=== PATIENT | female | born 1995 | race Caucasian/White ===

== ENCOUNTER 2018-03-07 11:07 | Inpatient (IN) | payer OTHER ==
--- NOTE | 2018-03-07 09:27 | PDHPUP ---
History & Physical Update H&P update statement: This history and physical update is based on an assessment of the patient which was completed after admission or registration (within 24 hours), but prior to the surgery/procedure. H&P update: H&P reviewed & patient examined
[2018-03-07] MEDS ORDERED: BACITRACIN ZINC 0.5 OZ OINTTUBE TP ONE (11:48)
[2018-03-07] MEDS ORDERED: LIDO/EPI 1% **Not for Epidural 20 ML MDV ONE (11:49)
--- NOTE | 2018-03-07 11:56 | PDANEPAE ---
ANE History of Present Illness THYROIDECTOMY ANE Past Medical History - Cardiovascular History Hx Hypertension: No Hx Arrhythmias: No Hx Chest Pain: No Hx Coronary Artery / Peripheral Vascular Disease: No Hx CHF / Valvular Disease: No Hx Palpitations: No - Pulmonary History Hx COPD: No Hx Asthma/Reactive Airway Disease: No Hx Recent Upper Respiratory Infection: No Hx Oxygen in Use at Home: No Hx Sleep Apnea: No Sleep Apnea Screening Result - Last Documented: Negative - Neurologic History Hx Cerebrovascular Accident: No Hx Seizures: No Hx Dementia: No - Endocrine History Hx Diabetes: No Hypothyroid: No Hyperthyroid: No Obesity: no - Renal History Hx Renal Disorders: No - Liver History Hx Hepatic Disorders: No - Neurological & Psychiatric Hx Hx Neurological and Psychiatric Disorders: No - Cancer History Hx Cancer: Yes Cancer History Comment: thyroid new diagnosis - Congenital Disorder History Hx Congenital Disorders: No - GI History GERD: no Hx Gastrointestinal Disorders: No - Other Health History Other Health History: none - Chronic Pain History Chronic Pain: No - Surgical History Prior Surgeries: removal of mass in neck 02/08 ANE Review of Systems Review of Systems: - Exercise capacity METS (RN): 5 METS ANE Patient History - Allergies Allergies/Adverse Reactions: No Known Allergies Allergy (Verified 02/18/18 14:51) - Home Medications Home Medications: Microgestin 21 1.5-30 Tab 02/18/18 [Last Taken 02/28/18] - Anes Hx Anes Hx: no prior problems - Smoking Hx Smoking Status: Former smoker - Alcohol Use Alcohol Use: Other (7 drinks/weekend) - Family Anes Hx Family Anes Hx: none Family Hx Anesthesia Complications: none ANE Labs/Vital Signs - Vital Signs Height: 157.48 cm Weight: 48.534 kg ANE Physical Exam - Airway Neck exam: FROM Mallampati Score: Class 1 Mouth exam: normal dental/mouth exam - Pulmonary Pulmonary: clear to auscultation - Cardiovascular Cardiovascular: regular rate and rhythym - ASA Status ASA Status: I ANE Anesthesia Plan Anesthesia Plan: general endotracheal anesthesia
[2018-03-07] MEDS ORDERED: MIDAZOLAM 2 MG/2 ML VIAL IVP ONE (11:57)
[2018-03-07] MEDS ORDERED: ROCURONIUM 50 MG/5 ML VIAL ONE (12:04)
[2018-03-07] MEDS ORDERED: PROPOFOL/EMULSION 500 MG/50 ML BOTTLE IV ONE (12:04)
[2018-03-07] MEDS ORDERED: ceFAZolin 2 GM/DEXTROSE 100 ML IV ONE (12:05)
[2018-03-07] MEDS ORDERED: DEXAMETHASONE 10 MG/ML VIAL IVP ONE ×2 (12:05→12:15)
[2018-03-07] MEDS ORDERED: LR 1,000 ML IV ONE (12:06)
[2018-03-07] MEDS ORDERED: LIDOCAINE 1% 2 ML INJ ID PRN (12:06)
[2018-03-07] MEDS ORDERED: DEXAMETHASONE 4 MG/ML VIAL ONE ×3 (12:55)
[2018-03-07] MEDS ORDERED: PHENYLEPHRINE HCL 100 MCG/ML SYR ONE (13:20)
[2018-03-07] MEDS ORDERED: ESMOLOL HCL 100 MG/10 ML VIAL IV ONE (14:38)
[2018-03-07] MEDS ORDERED: PROPOFOL 200 MG/20 ML VIAL ONE (14:54)
[2018-03-07] MEDS ORDERED: ONDANSETRON 4 MG/2 ML VIAL ONE (15:28)
[2018-03-07] MEDS ORDERED: ONDANSETRON 4 MG/2 ML VIAL IVP PRN (16:22)
[2018-03-07] MEDS ORDERED: NALOXONE HCL 0.4 MG/ML INJ IVP PRN (16:22)
[2018-03-07] MEDS ORDERED: HYDROmorphONE/DILAUDID 2 MG/ML INJ IVP PRN (16:22)
[2018-03-07] MEDS ORDERED: ACETAMINOPHEN 160 MG/5 ML UDCUP PO PRN (16:45)
--- NOTE | 2018-03-07 17:00 | POSTANESTH ---
Post Anesthetic Evaluation Cardiovascular Status: Normal, Stable Respiratory Status: Normal, Stable Level of Consciousness/Mental Status: Can Participate in Eval Pain Control: Adequate, Prn Tx Ordered Nausea/Vomiting Control: Adequate, Prn Tx Ordered Complications Possibly Related to Anesthesia: None Noted
[2018-03-07] MEDS ORDERED: fentaNYL 100 MCG/2 ML INJ ONE (17:17)
[2018-03-07] MEDS: fentaNYL 100 MCG/2 ML INJ IVP PRN ×2 (17:20→17:54)
--- NOTE | 2018-03-07 18:05 | GOP ---
DATE OF OPERATION: 03/07/2018 SURGEON: Yunior Nunez MD MATRIX INSPECTOR: Delroy Gallagher. ANESTHESIA: General. PREOPERATIVE DIAGNOSIS: Metastatic papillary thyroid carcinoma. POSTOPERATIVE DIAGNOSIS: Metastatic papillary thyroid carcinoma. PROCEDURE PERFORMED: Right lateral neck dissection. FINDINGS: SPECIMENS: Right neck lymph node, level 2B, 3, and 4. ESTIMATED BLOOD LOSS: Less than 50 mL. INDICATIONS: The patient is a 23-year-old woman who has biopsy-proven papillary thyroid carcinoma me tastatic to the right lateral neck. She presents for total thyroidectomy with central compartment ne ck dissection and also for right lateral neck dissection. DESCRIPTION OF PROCEDURE: The patient was taken to the operating room, positively identified, placed on monitors and general endotracheal anesthesia was induced. See Dr. Gallagher's dictation regarding the total thyroidectomy and central neck dissection. Upon completion of those procedures, attention was turned to the right lateral neck. We dissected al cristian the anterior aspect of the sternocleidomastoid muscle, extending up to the area of the previous s car tissue from the biopsy. The skin and scar had been excised, some of this was remaining along the anterior aspect of the sternocleidomastoid muscle. This was freed up and dissection was swept up to the level 2B region where lymph nodes were visible. The dissection was carried down inferiorly. The omohyoid muscle was identified. This was freed up from the underlying jugular vein and carotid cori ry. This allowed it to be swept inferiorly to expose the level 4 lymph nodes. At this point, maintaining a broad plane of dissection, we swept down to the deep cervical fascia and the cervical rootlets and swept the tissue anteriorly, avoiding the phrenic nerve. The lymph nodes were dissected off the posterior aspect of the jugular vein and swept over the jugular vein. The vag us and phrenic nerves as mentioned were preserved. Superiorly, we did not encounter the accessory ne rve. The nerve stimulator was used above this region of scar tissue. We did not identify it. The l ymphatic tissue was swept anteriorly off the neck and into different sections and sent for pathologic evaluation. The wound was then irrigated with sterile saline solution. A 10-Romanian round WENDY drain was placed and secured with a drain stitch. The closure was dictated by Dr. Delroy Gallagher. She was extubated and taken to postop care in good condition. Her voice was excellent in the PACU and her trapezius muscl es worked with equal strength in the PACU as well. /[id number]/MODL
[2018-03-07] MEDS: HYDROCOD/APAP 7.5/325 IN 15ML UDCUP PO PRN ×2 (19:16→23:13)
[2018-03-07] MEDS: D5W LR 1,000 ML IV SCH (21:01)
[2018-03-07] MEDS: ONDANSETRON 4 MG/2 ML VIAL IVP PRN (21:06)
[2018-03-07] MEDS: ceFAZolin 0.5 GM in NS 50 ML IV SCH (21:52)
[2018-03-07] MEDS ORDERED: CALCIUM GLUCONATE 2 GM in D5W 50 ML IV ONE (23:30)
[2018-03-08] MEDS: ceFAZolin 0.5 GM in NS 50 ML IV SCH (05:41)
[2018-03-08] MEDS: HYDROCOD/APAP 7.5/325 IN 15ML UDCUP PO PRN ×4 (05:50→18:38)
[2018-03-08] MEDS ORDERED: CALCIUM GLUCONATE 50 ML IV ONE ×2 (07:44→17:59)
[2018-03-08] MEDS ORDERED: CALCIUM GLUCONATE 2 GM in NS 50 ML IV ONE (07:55)
[2018-03-08] MEDS ORDERED: CALCIUM GLUCONATE 1 GM in D5W 50 ML IV ONE ×2 (08:00→18:30)
[2018-03-08] MEDS ORDERED: MAGNESIUM CITRATE 300 ML BOTTLE PO SCH (09:00)
[2018-03-08] MEDS: D5W LR 1,000 ML IV SCH (09:55)
--- NOTE | 2018-03-08 10:23 | SOAPPROG ---
SOAP Progress Note Assessment/Plan: Assessment: Pt POD #1 s/p total thyroidectomy. She is doing well. Pain controlled. Calcium levels dropped over night and she had some tingling sensations. She was given 2 gm IV calcium overnight and again this morning. Voice strong. Tavo drains removed, WENDY remains. Incision c/d/i. Dressing replaced. Will continue to monitor calcium levels and replace as needed. Continue PO magnesium/vitamin D. We will re-evaluate later today, possible d/c tomorrow or when calcium normalizes. Pt was evaluated by Dr. Gallagher today, agrees with plan. Plan: 03/08/18 10:20 Objective: Vital Signs Temp Pulse Resp BP Pulse Ox 36.9 C 81 16 102/57 L 96 03/08/18 08:28 03/08/18 08:28 03/08/18 08:28 03/08/18 08:28 03/08/18 08:28 03/07/18 03/08/18 03/09/18 05:59 05:59 05:59 Intake Total 1842 Output Total 765 Balance 1077 ICD10 Worksheet Patient Problems: Problems Problem Status Onset Thyroid mass Acute - ICD10 Problem Qualifiers (1) Thyroid mass
--- NOTE | 2018-03-08 11:27 | ASMTCMCOM ---
CM Note CM Note Notes: Pt is a 23 y/o female admitted for a right neck lateral dissection. Pt should not have any d/c needs. CM available for changes. Plan: Independent Date Signed: 03/08/2018 11:26 AM Electronically Signed By:REMY Hunter
[2018-03-08] MEDS: MAGNESIUM OXIDE 400 MG TAB PO SCH (11:39)
[2018-03-08] MEDS: CHOLECALCIFEROL VIT D3 2,000 UNITS TAB/CAP PO SCH (11:40)
[2018-03-08] MEDS: CALCIUM CARBONATE 500 MG CHEWABLE TAB PO SCH ×2 (16:13→21:53)
--- NOTE | 2018-03-08 17:02 | GOP ---
DATE OF OPERATION: 03/07/2018 SURGEON: Delroy Gallagher MD FRUIT CULLER: Yunior Nunez MD. ANESTHESIA: General. PREOPERATIVE DIAGNOSIS: Papillary thyroid carcinoma. POSTOPERATIVE DIAGNOSIS: Papillary thyroid carcinoma. PROCEDURE PERFORMED: Total thyroidectomy with central neck dissection. FINDINGS: SPECIMENS: To Pathology from the thyroid gland, right paratracheal nodes, and central paratracheal n odes. ESTIMATED BLOOD LOSS: Less than 100 mL. INDICATIONS: Papillary thyroid carcinoma. DESCRIPTION OF PROCEDURE: The patient is a 23-year-old female brought to the operating room where ge neral anesthesia was induced. Endotracheal intubation was performed. The patient was placed with th e neck in extension and a horizontal neck crease identified for purposes of a planned incision and it was marked out with 1% lidocaine with epinephrine 1:100,000 strength infiltrated subcutaneously into the planned incision. Roughly 8 mL were used. The neck was then prepped and draped in a sterile fa shion. The procedure was then begun by using a 15 blade to excise the old biopsy site scar in the ri ght lateral neck in the neck crease extending the incision across the neck in a horizontal fashion in the neck crease to the contralateral sides anterior to the sternocleidomastoid muscle. The incision was deepened into a deep subcutaneous and subplatysmal plane using blunt dissection and electrocaute ry and superior and inferior skin flaps were raised through this approach to help expose the midline and right lateral neck. The flaps were then retracted using 2-0 silk suture. The midline was identi fied and divided down to the thyroid fascia and the thyroid fascia dissected free of surrounding musc ulature in a blunt fashion using electrocautery and blunt dissection overlying the right lateral thyr oid gland to the right lateral vein. The lateral vein was then identified and divided with bipolar e lectrocautery and tenotomy scissors. Dissection then proceeded along the superior pole with removal of muscle from this region off the thyroid gland. The superior pole vessels were identified, clamped , divided, and ligated using 2-0 silk tie for the thyroid portion of the vessels and a 2-0 stick tie for the superior portion of the vessels. Further dissection of the fascia released the thyroid gland superiorly and laterally and the gland was rotated medially. Dissection underneath the gland reveal ed the recurrent laryngeal nerve and this was traced superiorly and inferiorly with dissection of the fascia of the thyroid gland off the nerve. Once this was done, the gland was dissected off Zhang li gament on the trachea and retracted medially over the anterior trachea. The isthmus and pyramidal lob e were also identified during this portion of the dissection and dissected free of the trachea as wel l. At this portion of the procedure, the right paratracheal nodes were identified just on top of and lateral and posterior to the recurrent laryngeal nerve and these nodes are suspicious for metastatic disease and they are dissected free of the nerve with tracing of the paratracheal fat down on the ri ght and central portion inferior to the isthmus of the thyroid gland with protection of the recurrent laryngeal nerve during the portion of this dissection, contents of the central and right lateral par atracheal nodes are then sent for pathology. The patient then has the left thyroid addressed with dis section of the fascia off the gland and removal of muscle off the gland with dissection and release o f the lateral thyroid vein using bipolar electrocautery and tenotomy scissors. The superior pole ves sels were identified, clamped, divided, and ligated using 2-0 silk tie and 2-0 stick ties for the inf erior and superior portions, respectively. The gland was then retracted medially and the recurrent l aryngeal nerve identified in its normal course. The gland was further dissected away from surroundin g fascia and vasculature pedicles and retracted medially until it was removed in toto from the neck. At this portion of the procedure, the thyroid gland was dissected into 3 elements, the right lobe, t he left lobe, and the isthmus and pyramidal lobes and these were sent to Pathology for routine analys is. The contents of the neck were then checked with both recurrent laryngeal nerves identified and t raced and felt to be intact and the parathyroid glands were identified with 3 glands identified, the superior right, the superior and inferior left. The inferior right parathyroid gland was likely kimber ramone with the suspicious right paratracheal nodes. The wound was then copiously irrigated and any ble eding controlled with bipolar electrocautery. At this portion of the procedure, Dr. Daniels's dicta tion for the right lateral neck dissection will proceed as the next thing that occurred surgically. After his dictation, please add the following paragraph: At the conclusion of the procedure, all wou nds were copiously irrigated and checked for bleeding and adequate and excellent hemostasis noted. T he wounds were then closed with 4-0 Monocryl suture to close the muscular layers and 4-0 Monocryl for the subcutaneous layers and 5-0 nylon for the cutaneous layer. The wounds were closed over drains w ith two 1/4-inch Crescent exiting either side of the trachea where the thyroid tissue cavity was, and these exited the midline of the incision and a #10 WENDY drain which was used to drain the right lateral neck dissection which exited the neck lateral to the incision in a separate access point. The WENDY dr barnes was sewn in place with 3-0 silk suture, and the patient's neck once it was closed was cleaned and dressed with Bacitracin, Telfa, and fluff and Nicole dressing and she was awakened and extubated unev entfully and brought to the recovery room in stable condition where she was expected to do well posto peratively. The patient tolerated the procedure well. HISTORY: This is a 23-year-old woman with open biopsy proven papillary carcinoma metastatic to the r ight neck. Risks, benefits, indications, options, possible complications, and limitations of this pr ocedure were discussed at length with the patient and her parents prior to signing informed consent, and she was given a chance to have her questions answered. /[id number]/MODL
[2018-03-08] MEDS ORDERED: BACITRACIN ZINC 0.5 OZ OINTTUBE TP ONE (18:01)
[2018-03-08] MEDS ORDERED: BACITRACIN OINTMENT 1 PACKET TP ONE (18:06)
[2018-03-09] MEDS: HYDROCOD/APAP 7.5/325 IN 15ML UDCUP PO PRN ×6 (01:06→23:00)
[2018-03-09] MEDS: D5W LR 1,000 ML IV SCH ×2 (01:17→17:12)
[2018-03-09] MEDS ORDERED: CALCIUM GLUCONATE 50 ML IV ONE (07:45)
[2018-03-09] MEDS: CALCITRIOL 0.25 MCG CAP PO SCH ×3 (08:09→21:37)
[2018-03-09] MEDS: MAGNESIUM OXIDE 400 MG TAB PO SCH (08:09)
[2018-03-09] MEDS: CALCIUM CARBONATE 500 MG CHEWABLE TAB PO SCH ×3 (08:09→21:37)
[2018-03-09] MEDS: CHOLECALCIFEROL VIT D3 2,000 UNITS TAB/CAP PO SCH (08:09)
[2018-03-09] MEDS: ONDANSETRON 4 MG/2 ML VIAL IVP PRN (10:48)
[2018-03-09] MEDS ORDERED: CALCIUM GLUCONATE 2 GM in D5W 50 ML IV ONE ×2 (12:00→20:00)
--- NOTE | 2018-03-09 14:58 | SOAPPROG ---
SOAP Progress Note Assessment/Plan: pt s/p total thyroid 03/07. She has jasper hypocalcemic. We robyn her this am and she was not ahving any numbness or cramping. Ca was .98. i gave her 1 gm calcium gluconate/rocaltrol and she then dropped to .96 and had some numbness/ tingling per nurse. We then gave her 2 amp calcium. waiting for redraw Seen this morning with Dr. Gunter. drain removed. dressing placed. Plan: continue to follow calcium closely. will need to stay in hospital until stabilized. 03/09/18 14:55 Objective: Vital Signs Temp Pulse Resp BP Pulse Ox 37.0 C 93 16 110/63 95 03/09/18 08:00 03/09/18 08:00 03/09/18 08:00 03/09/18 08:00 03/09/18 08:00 03/08/18 03/09/18 03/10/18 05:59 05:59 05:59 Intake Total 1842 Output Total 765 905 Balance 1077 -905 - Pending Discharge Pending Discharge Within 48 Hours: Yes Pending Discharge Date: 03/11/18 Pending Discharge Time: 11:00 ICD10 Worksheet Patient Problems: Problems Problem Status Onset Thyroid mass Acute
--- NOTE | 2018-03-09 15:52 | PDMN ---
Medical Necessity Medical necessity: Change to inpt as of 03/09/18 @ 15:40 per MD order and [facility] S- 1090, Thyroidectomy. 23 y/o w/papillary thyroid carcinoma metastatic to R lateral neck admitted for total thyroidectomy w/R lateral neck dissection and lymph node dissection. Upgraded to inpt for post-op hypocalcemia, persistent, despite calcium replacement, cont to follow calcium closely, est LOS>2MN for ongoing eval/management of above.
[2018-03-09] MEDS: BACITRACIN OINTMENT 1 PACKET TP SCH (19:52)
[2018-03-10] MEDS: HYDROCOD/APAP 7.5/325 IN 15ML UDCUP PO PRN ×4 (03:06→20:49)
[2018-03-10] MEDS: BACITRACIN OINTMENT 1 PACKET TP SCH ×3 (03:21→18:43)
--- NOTE | 2018-03-10 07:47 | SOAPPROG ---
KIKO Progress Note Assessment/Plan: pt s/p total thyroid 03/07. She has jasper hypocalcemic. I gaveher 2 amps at 8pm and thsi morning her ca is stable at 1.06. No numbness /tingling or cramping. Plan: continue to follow calcium closely. will need to stay in hospital until stabilized. reviewed with Elliott. The plan is to see how she does today. If stays stable without IV ca then can go home tonight or in morning. I will draw calcium a t noon. If symptomatic sooner than nurse will call us. I had increased her tums last night to 1500mg so hopefully that will help keep her stable. 03/09/18 14:55 03/10/18 07:44 Objective: Vital Signs Temp Pulse Resp BP Pulse Ox 37.0 C 82 16 116/55 L 95 03/09/18 22:59 03/09/18 22:59 03/09/18 22:59 03/09/18 22:59 03/09/18 22:59 03/09/18 03/10/18 03/11/18 05:59 05:59 05:59 Intake Total 3952 Output Total 905 Balance -905 3952 ICD10 Worksheet Patient Problems: Problems Problem Status Onset Thyroid mass Acute
[2018-03-10] MEDS: CALCITRIOL 0.25 MCG CAP PO SCH ×3 (08:19→21:17)
[2018-03-10] MEDS: CHOLECALCIFEROL VIT D3 2,000 UNITS TAB/CAP PO SCH (08:19)
[2018-03-10] MEDS: CALCIUM CARBONATE 500 MG CHEWABLE TAB PO SCH ×3 (08:19→21:17)
[2018-03-10] MEDS: MAGNESIUM OXIDE 400 MG TAB PO SCH (10:34)
--- NOTE | 2018-03-10 13:24 | SOAPPROG ---
SOAP Progress Note Assessment/Plan: Assessment: Hypocalcemia - stable at 12p today on PO tums. I took off wrap dressing and replaced with abx ointment and light cover dressing. Plan: Continue PO tums. If she continues to have stable serum Ca will d/c on in am. She can bathe but told to keep wound completely dry 03/10/18 13:21 03/10/18 13:24 Subjective: Pt reports that she is feeling good. No numbness, tingling of face or around mouth Objective: Vital Signs Temp Pulse Resp BP Pulse Ox 36.8 C 81 15 97/59 L 98 03/10/18 08:00 03/10/18 08:00 03/10/18 08:00 03/10/18 08:00 03/10/18 08:00 03/09/18 03/10/18 03/11/18 05:59 05:59 05:59 Intake Total 3952 500 Output Total 905 Balance -905 3952 500 VSS, pt resting comfortably in bed. Wound dry. No oozing or swelling in throat - Pending Discharge Pending Discharge Within 24 Hours: Yes Pending Discharge Date: 03/11/18 Pending Discharge Time: 11:00 ICD10 Worksheet Patient Problems: Problems Problem Status Onset Thyroid mass Acute
[2018-03-11] MEDS: BACITRACIN OINTMENT 1 PACKET TP SCH ×2 (03:28→11:25)
[2018-03-11] MEDS: HYDROCOD/APAP 7.5/325 IN 15ML UDCUP PO PRN ×2 (04:30→11:23)
[2018-03-11] MEDS: CALCIUM CARBONATE 500 MG CHEWABLE TAB PO SCH (08:43)
[2018-03-11] MEDS: MAGNESIUM OXIDE 400 MG TAB PO SCH (08:43)
[2018-03-11] MEDS: CALCITRIOL 0.25 MCG CAP PO SCH (08:43)
[2018-03-11] MEDS: CHOLECALCIFEROL VIT D3 2,000 UNITS TAB/CAP PO SCH (08:43)
[2018-03-11 09:01] VITALS: BP 96/55
--- NOTE | 2018-03-11 10:01 | PDDCSUM ---
Discharge Summary Discharge Summary: pt s/p total thyroidectomy with neck dissection for papilalry CA on 03/[address] morfin. Pt developed hypocalcemia post operatively and ws monitored for 4 days. Drain removed Wed. She required IV CA on 03/09 but ahs held stable since with Tums 1500mg 3-4x day and rocaltrol. pt discharged home with Percocet prn, rocaltrol tid, tums 150mmg tid. F/u Tuesday 03/14 for suture removal. has appt with endocrine scheduled.
== END 2018-03-11 12:06 | disposition home or self-care (01) | DRG 626 ==
LOC: F3N 11:07 → F3E 20:00 → OBSVTOIN 03-09 15:40
PROVIDERS: ADMIT Otolaryngology; ATTEND Otolaryngology
PROC: 07B10ZX Excision of Right Neck Lymphatic, Open Approach, Diagnostic (ICD-10-PCS; principal; 2015-03-07)
PROC: 07B20ZX Excision of Left Neck Lymphatic, Open Approach, Diagnostic (ICD-10-PCS; principal; 2015-03-07)
PROC: 0GTK0ZZ Resection of Thyroid Gland, Open Approach (ICD-10-PCS; principal; 2015-03-07)
DX: E83.51 Hypocalcemia (principal); C73 Malignant neoplasm of thyroid gland; C77.0 Secondary and unspecified malignant neoplasm of lymph nodes of head, face and neck; Z87.891 Personal history of nicotine dependence
CPT/HCPCS: G0378; J0610; J0690; J1100; J2250; J2370; J2405; J2704; J3010